=== PATIENT | female | born 1990 ===

== ENCOUNTER 2019-08-23 15:52 | Inpatient (IN) | payer BC ==
[2019-08-26] MEDS ORDERED: OXYTOCIN 10 UNIT/ML 1 ML VIAL IM PRN (06:09)
[2019-08-26] MEDS ORDERED: TERBUTALINE 1 MG/ML VIAL SQ PRN (06:09)
[2019-08-26] MEDS ORDERED: CARBOPROST TROMETHAMINE 250 MCG/ML 1 ML AMP IM PRN (06:09)
[2019-08-26] MEDS ORDERED: LIDOCAINE 0.5% (PF) 5 MG/ML (50 ML SDV) SQ PRN (06:09)
[2019-08-26] MEDS ORDERED: METHYLERGONOVINE 0.2 MG/ML 1 ML AMP IM PRN (06:09)
[2019-08-26 06:16] VITALS: BMI 30.4
[2019-08-26] MEDS: OXYTOCIN 30 UNITS/500 ML NS 30 UNIT in SALINE 1 500ML.BAG IV SCH (06:22)
[2019-08-26] MEDS: LACTATED RINGERS 1,000 ML IV SCH ×3 (06:22→12:03)
[2019-08-26 06:36] LABS: Basophils % (A) 0 %; Eosinophils # (A) 0.1 k/uL (0-0.7); Eosinophils % (A) 1 %; HCT 35.1 % (34.0-46.0); HGB 11.8 gm/dL (11.4-16.0); Lymphocytes # (A) 1.3 k/uL (1.0-4.8); Lymphocytes % (A) 13 %; MCH 31.8 pg (25.0-35.0); MCHC 33.5 g/dL (31.0-37.0); MCV 94.8 fL (80.0-100.0); Mean Platelet Volume 7.2; Monocytes # (A) 0.5 k/uL (0-1.0); Monocytes % (A) 5 %; Neutrophils # (A) 7.7 k/uL (1.3-7.7); Neutrophils % (A) 79 %; Platelet Count 259 k/uL (150-450); WBC 9.8 k/uL (3.8-10.6)
--- NOTE | 2019-08-26 08:39 | P.HPOB ---
History of Present Illness H&P Date: 08/26/19 Chief Complaint: IUP at 40 and 3/sevenths weeks This is a pleasant 29-year-old 1 para 0 at 40-3/7 weeks with an estimated due date of 1020. Patient presents for induction of labor secondary to postdates. Patient has been receiving routine care with myself which has been uncomplicated. Patient notes good movement this morning, she denies contractions, no loss of fluid or vaginal bleeding. On blood work shows a blood type of A+ rubella immune, hepatitis B surface antigen negative, HIV negative, RPR nonreactive, GBS is negative. Review of Systems Constitutional: Denies chills, Denies fatigue Ears, nose, mouth and throat: Denies headache Respiratory: Denies dyspnea Gastrointestinal: Denies constipation, Denies diarrhea, Denies nausea, Denies vomiting Genitourinary: Reports Past Medical History Past Medical History: No Reported History History of Any Multi-Drug Resistant Organisms: None Reported Additional Past Surgical History / Comment(s): [place] tooth extraction Past Anesthesia/Blood Transfusion Reactions: No Reported Reaction Past Psychological History: No Psychological Hx Reported Smoking Status: Never smoker Past Alcohol Use History: None Reported Past Drug Use History: None Reported - Past Family History Mother Family Medical History: No Reported History Medications and Allergies Home Medications Medication Instructions Recorded Confirmed Type Pnv No.95/Ferrous Fum/Folic AC 1 tab PO DAILY 08/26/19 08/26/19 History [ Multivitamin Tablet] Allergies Allergy/AdvReac Type Severity Reaction Status Date / Time No Known Allergies Allergy Verified 08/26/19 06:08 Exam Osteopathic Statement: *. No significant issues noted on an osteopathic structural exam other than those noted in the History and Physical/Consult. Vital Signs Temp Pulse Resp BP 08/26/19 06:09 98.3 F 105 H 16 139/87 Intake and Output 08/25/19 08/26/19 08/26/19 22:59 06:59 14:59 Other: Weight 73.028 kg Targeted physical exam is performed and the state in general this is well- nourished well-developed female in no acute distress, breathing is noted to be nonlabored her heart has regular rate and rhythm her abdomen is gravid and appropriate for gestational age, heart tones are noted to be category 1 and she is tory every 3 minutes, on cervical exam she is 4/50/-2 amniotomy is performed and clear fluid was obtained. Noted trace lower cavity edema. Results Result Diagrams: 08/26/19 06:25 Abnormal Lab Results - Last 24 Hours (Table) 08/26/19 Range/Units 06:25 RBC 3.70 L (3.80-5.40) m/uL Assessment and Plan (1) Post-dates Current Visit: Yes Status: Acute Code(s): O48.0 - POST-TERM SNOMED Code(s): 05775217 Plan: Patient is admitted to labor and delivery for induction of labor, Pitocin augmentation of labor was begun per protocol. Patient is unsure about epidural which is offered for analgesia throughout labor. Stadol is also discussed. Anticipate spontaneous vaginal delivery later today.
[2019-08-26] MEDS ORDERED: BUTORPHANOL 1 MG/ML 1 ML VIAL IV PRN (08:40)
[2019-08-26] MEDS ORDERED: ROPIVACAINE 5MG/ML 20ML VIAL ONE (10:53)
[2019-08-26] MEDS ORDERED: SODIUM CHLORIDE 0.9% 100 ML BAG ONE (10:53)
[2019-08-26] MEDS ORDERED: fentaNYL (PF) 50 MCG/ML 5 ML AMP ONE (10:53)
[2019-08-26] MEDS ORDERED: BENZOCAINE/MENTHOL SPRAY 1 GM/SPRAY AEROSOL TOPICAL PRN (18:54)
[2019-08-26] MEDS ORDERED: ZOLPIDEM 5 MG TAB PO PRN (18:54)
[2019-08-26] MEDS ORDERED: diphenhydrAMINE 50 MG/ML 1 ML VIAL IVP PRN ×2 (18:54)
[2019-08-26] MEDS ORDERED: diphenhydrAMINE 50 MG CAP PO PRN (18:54)
[2019-08-26] MEDS ORDERED: HYDROCORTISONE 2.5% RECTAL CREAM 30 GM TUBE RECTAL PRN (18:54)
[2019-08-26] MEDS ORDERED: WITCH HAZEL 1 EACH MED..PAD TOPICAL PRN (18:54)
[2019-08-26] MEDS ORDERED: HYDROcodone/APAP 5-325MG 1 EACH TAB PO PRN (18:54)
[2019-08-26] MEDS ORDERED: LANOLIN CREAM 5 GM TUBE TOPICAL PRN (18:54)
[2019-08-26] MEDS ORDERED: SIMETHICONE 80 MG CHEWABLE PO PRN (18:54)
[2019-08-26] MEDS ORDERED: diphenhydrAMINE 25 MG CAP PO PRN (18:54)
--- NOTE | 2019-08-26 18:59 | P.PROBDLV ---
Vaginal Delivery Note - . Vaginal Delivery Note: This is a pleasant 29-year-old 1 para 0 at 40-3/7 weeks that presented to labor and delivery for elective induction of labor/postdates. Patient was noted to be 2-3 cm in the office and favorable for induction. Patient was admitted Pitocin induction of labor was begun per hospital protocol, once regular contractions were noted amniotomy was performed clear fluid was noted. Soon afterwards patient became uncomfortable was noted to be 5 cm, she requested epidural placement. Epidural was placed without difficulty by the anesthesia department. Patient progressed through labor eventually becoming complete began pushing and had a normal spontaneous vaginal delivery of a viable male infant at 1834, was noted to have a loose nuchal cord which was delivered through. Infant's weight 5 lbs. 15 oz. with Apgars of 8 and 9 at one and 5 minutes respectively. After a two-minute delayed the umbilical cord was doubly clamped and cut and the placenta was delivered spontaneously intact with a three-vessel cord being noted. On inspection the patient's vault a right labial laceration was noted to travel just inside the hymenal ring. This was repaired in usual fashion with 4-0 chromic. Afterwards hemostasis was appreciated. A small hematoma was noted on the left hymenal ring stable throughout repair no change in size. The uterus was noted to be firm and below the umbilicus at this time. Estimated blood loss 200 mL. patient and tolerated delivery well and are resting comfortably.
[2019-08-26] MEDS ORDERED: OXYTOCIN 20 UNITS/1000 ML NS 1,000 ML IV SCH (19:00)
[2019-08-26] MEDS: IBUPROFEN 600 MG TAB PO PRN (19:30)
[2019-08-26] MEDS: PRENATAL VIT-IRON-FOLIC ACID 1 EACH CAP PO SCH (21:49)
[2019-08-26] MEDS: SENNOSIDES-DOCUSATE SODIUM 1 EACH TAB PO SCH (21:49)
[2019-08-26] MEDS: ACETAMINOPHEN TAB 325 MG TAB PO PRN (22:52)
[2019-08-27] MEDS: LACTATED RINGERS 1,000 ML IV SCH ×2 (00:54→21:15)
[2019-08-27] MEDS: IBUPROFEN 600 MG TAB PO PRN ×4 (00:58→22:32)
[2019-08-27] MEDS: ACETAMINOPHEN TAB 325 MG TAB PO PRN ×2 (03:11→16:33)
[2019-08-27 07:23] LABS: Basophils % (A) 0 %; Eosinophils % (A) 0 %; HCT 30.6 % (34.0-46.0); HGB 10.4 gm/dL (11.4-16.0); Lymphocytes # (A) 1.3 k/uL (1.0-4.8); Lymphocytes % (A) 9 %; MCH 32.5 pg (25.0-35.0); MCHC 33.9 g/dL (31.0-37.0); MCV 95.9 fL (80.0-100.0); Monocytes # (A) 0.6 k/uL (0-1.0); Monocytes % (A) 5 %; Neutrophils # (A) 12.1 k/uL (1.3-7.7); Neutrophils % (A) 85 %; Platelet Count 226 k/uL (150-450); RBC 3.19 m/uL (3.80-5.40); WBC 14.3 k/uL (3.8-10.6)
[2019-08-27] MEDS: SENNOSIDES-DOCUSATE SODIUM 1 EACH TAB PO SCH ×2 (08:16→21:16)
[2019-08-27] MEDS: PRENATAL VIT-IRON-FOLIC ACID 1 EACH CAP PO SCH ×2 (08:18→08:24)
--- NOTE | 2019-08-27 08:54 | P.PNOBGVD ---
Subjective - Subjective Principal diagnosis: POD 1 Interval history: Patient did well overnight. Initial elevated temp of 102.1 has normalized overnight. She was begun on IV antibiotics and has received 2 doses. This morning she states she feels well. she denies fevers or chills, she notes good pain control. She is breast-feeding without difficulty. She is ambulating and voiding without difficulty. States her lochia is moderate. Patient reports: Reports appetite normal, Reports voiding normally, Reports pain well controlled, Reports ambulating normally [place]: doing well, nursing well Objective - Latest Vital Signs Latest vital signs: Vital Signs Temp Pulse Resp BP Pulse Ox 08/27/19 03:00 98.5 F 108 H 16 107/73 08/26/19 23:10 100.0 F H 113 H 16 117/66 98 08/26/19 20:51 100.1 F H 08/26/19 20:50 101 F H 106 H 16 125/78 98 08/26/19 20:21 99.0 F 08/26/19 20:20 100.2 F H 105 H 14 136/82 08/26/19 19:51 99.7 F H 08/26/19 19:50 99.5 F 111 H 14 135/63 08/26/19 19:35 100.5 F H 109 H 16 147/65 08/26/19 19:20 118 H 16 141/64 08/26/19 19:11 98.9 F 08/26/19 19:10 102.1 F H 08/26/19 19:05 101 F H 118 H 16 126/87 08/26/19 18:50 114 H 16 121/84 Intake and Output 08/26/19 08/27/19 08/27/19 22:59 06:59 14:59 Output Total 550 Balance -550 Output: Urine 350 Estimated Blood Loss 200 Other: # Voids 1 - Exam Extremities: Present: normal Abdomen: Present: normal appearance, soft Uterus: Present: normal, firm - Labs Labs: Abnormal Lab Results - Last 24 Hours (Table) 08/27/19 Range/Units 06:46 WBC 14.3 H (3.8-10.6) k/uL RBC 3.19 L (3.80-5.40) m/uL Hgb 10.4 L (11.4-16.0) gm/dL Hct 30.6 L (34.0-46.0) % Neutrophils # 12.1 H (1.3-7.7) k/uL Assessment and Plan (1) Post-dates Current Visit: Yes Status: Acute Code(s): O48.0 - POST-TERM SNOMED Code(s): 97620854 (2) Maternal fever during labor, delivered Current Visit: Yes Status: Acute Code(s): O75.2 - PYREXIA DURING LABOR, NOT ELSEWHERE CLASSIFIED SNOMED Code(s): 683418730 Plan: We'll continue IV antibiotics for a total of 24 hours, and plan on discharge tomorrow if all signs are reassuring. Patient looks well today and I do anticipate discharge home tomorrow.
[2019-08-27] MEDS: OXYTOCIN 30 UNITS/500 ML NS 30 UNIT in SALINE 1 500ML.BAG IV SCH (21:15)
[2019-08-28] MEDS: IBUPROFEN 600 MG TAB PO PRN (08:01)
[2019-08-28 08:51] VITALS: BP 115/70; PULSE 94; RESP 16; TEMP 98.2
[2019-08-28] MEDS: SENNOSIDES-DOCUSATE SODIUM 1 EACH TAB PO SCH (08:53)
--- NOTE | 2019-08-28 10:22 | P.DS ---
Providers Date of admission: 08/26/19 05:52 Expected date of discharge: 08/28/19 Attending physician: Madeleine Davies Primary care physician: Claude Rock - Discharge Diagnosis(es) (1) Maternal fever during labor, delivered Current Visit: Yes Status: Acute (2) Post-dates Current Visit: Yes Status: Acute (3) Normal spontaneous vaginal delivery Current Visit: Yes Status: Acute (4) Nuchal cord Current Visit: Yes Status: Acute Hospital Course: This is a 29-year-old 1 now para 1 woman who on the was admitted at 40- 3/7 weeks gestation for elective induction of labor. She underwent a standard Pitocin induction of labor with artificial rupture of membranes. She received an epidural anesthetic. She went on to deliver a liveborn male with Apgars of 8 at 1 minute and 9 at 5 minutes weighing 5 lbs. 15 oz. with a nuchal cord 1. Small labial laceration noted and repaired. The patient did have fever post delivery and received IV antibiotics. There was no localizing source for the fever. She had a T-max of 101 on 1024 at 8:50 PM. She then remained afebrile for the duration of her hospital course. By the morning of day #2 she was afebrile. She had no localizing source for inspection, specifically no dysuria, no uterine tenderness, no breast redness or signs of mastitis. She was therefore discharged home with routine instructions for care and follow-up. Procedures: Patient Condition at Discharge: Good Plan - Discharge Summary New Discharge Prescriptions: No Action Pnv No.95/Ferrous Fum/Folic AC [ Multivitamin Tablet] 1 tab PO DAILY Discharge Medication List Pnv No.95/Ferrous Fum/Folic AC [ Multivitamin Tablet] 1 tab PO DAILY 08/26/19 [History] Follow up Appointment(s)/Referral(s): Madeleine Davies DO [Doctor of Osteopathic Medicine] - 4 Weeks Activity/Diet/Wound Care/Special Instructions: Follow-up in the office in 6 weeks . Call with any concerning signs or symptoms including heavy vaginal bleeding, severe abdominal pain, fever greater than 101, swelling or redness of the lower extremities, foul vaginal discharge, or signs of depression. Nothing in the vagina for 6 weeks after delivery, specifically no intercourse. Discharge Disposition: HOME SELF-CARE
== END 2019-08-28 11:30 | disposition home or self-care (01) | DRG 806 ==
LOC: 4FBP 08-26 05:52 → MERGE 08-26 05:52
PROVIDERS: ADMIT Obstetrics & Gynecology Obstetrics; ATTEND Obstetrics & Gynecology Obstetrics
PROC: 10E0XZZ Delivery of Products of Conception, External Approach (ICD-10-PCS; principal; 2019-08-26)
PROC: 0HQ9XZZ Repair Perineum Skin, External Approach (ICD-10-PCS; 2019-08-26)
PROC: 10907ZC Drainage of Amniotic Fluid, Therapeutic from Products of Conception, Via Natural or Artificial Opening (ICD-10-PCS; 2019-08-26)
PROC: 3E033VJ Introduction of Other Hormone into Peripheral Vein, Percutaneous Approach (ICD-10-PCS; 2019-08-26)
PROC: 00HU33Z Insertion of Infusion Device into Spinal Canal, Percutaneous Approach (ICD-10-PCS; 2019-08-26)
PROC: 3E0R3BZ Introduction of Anesthetic Agent into Spinal Canal, Percutaneous Approach (ICD-10-PCS; 2019-08-26)
DX: O48.0 Post-term pregnancy (principal); O75.2 Pyrexia during labor, not elsewhere classified; Z37.0 Single live birth; O69.81X0 Labor and delivery complicated by cord around neck, without compression, not applicable or unspecified; O70.0 First degree perineal laceration during delivery; Z3A.40 40 weeks gestation of pregnancy
CPT/HCPCS: 85025; 86850; 86900; 86901; 88307

== ENCOUNTER 2024-11-19 12:12 | Inpatient (IN) | payer BC ==
[2024-11-19] MEDS ORDERED: TRANEXAMIC 1,000 MG/100ML-NACL 1,000 MG in EMPTY BAG 1 BAG IV PRN (12:53)
[2024-11-19] MEDS ORDERED: METHYLERGONOVINE 0.2 MG/ML 1 ML AMP IM PRN (12:53)
[2024-11-19] MEDS ORDERED: OXYTOCIN 10 UNIT/ML 1 ML VIAL IM PRN (12:53)
[2024-11-19] MEDS ORDERED: TERBUTALINE 1 MG/ML VIAL SQ PRN (12:53)
[2024-11-19] MEDS ORDERED: LIDOCAINE 0.5% (PF) 5 MG/ML (50 ML SDV) SQ PRN (12:53)
[2024-11-19] MEDS ORDERED: miSOPROStoL 200 MCG TAB RECTAL PRN (12:53)
[2024-11-19] MEDS ORDERED: CARBOPROST TROMETHAMINE 250 MCG/ML 1 ML AMP IM PRN (12:53)
[2024-11-19] MEDS ORDERED: miSOPROStoL 200 MCG TAB PO PRN (12:53)
[2024-11-19 13:04] LABS: Basophils % (A) 0 %; Eosinophils # (A) 0.1 k/uL (0-0.7); Eosinophils % (A) 1 %; HCT 34.5 % (34.0-46.0); HGB 11.7 gm/dL (11.4-16.0); Lymphocytes # (A) 0.6 k/uL (1.0-4.8); Lymphocytes % (A) 10 %; MCHC 33.8 g/dL (31.0-37.0); MCV 91.8 fL (80.0-100.0); Mean Platelet Volume 8.4; Monocytes # (A) 0.6 k/uL (0-1.0); Monocytes % (A) 9 %; Neutrophils # (A) 5.1 k/uL (1.3-7.7); Neutrophils % (A) 78 %; Platelet Count 247 k/uL (150-450); RBC 3.75 m/uL (3.80-5.40); RDW 13.9 % (11.5-15.5); WBC 6.5 k/uL (3.8-10.6)
[2024-11-19 13:48] VITALS: RESP 16
[2024-11-19] MEDS: NALBUPHINE 10 MG/ML (10 ML MDV) IV PRN (15:48)
[2024-11-19] MEDS: OXYTOCIN 30 UNITS/500 ML NS 30 UNIT in SALINE 1 500ML.BAG IV SCH (15:48)
[2024-11-19] MEDS: LACTATED RINGERS 1,000 ML IV SCH (15:50)
[2024-11-19] MEDS: AMPICILLIN 2,000 MG in SODIUM CHLORIDE 0.9% 100 ML IVPB STA (16:04)
[2024-11-19] MEDS ORDERED: ROPIVACAINE 5 MG/ML 30 ML VIAL ONE (16:59)
[2024-11-19] MEDS ORDERED: SODIUM CHLORIDE 0.9% 250 ML BAG ONE (16:59)
[2024-11-19] MEDS ORDERED: fentaNYL (PF) 50 MCG/ML 5 ML AMP ONE (16:59)
[2024-11-19] MEDS ORDERED: diphenhydrAMINE 50 MG CAP PO PRN (19:55)
[2024-11-19] MEDS ORDERED: diphenhydrAMINE 25 MG CAP PO PRN (19:55)
[2024-11-19] MEDS ORDERED: HYDROCORTISONE 2.5% RECTAL CREAM 30 GM TUBE RECTAL PRN (19:55)
[2024-11-19] MEDS ORDERED: ZOLPIDEM 5 MG TAB PO PRN (19:55)
[2024-11-19] MEDS ORDERED: diphenhydrAMINE 50 MG/ML 1 ML VIAL IVP PRN ×2 (19:55)
[2024-11-19] MEDS ORDERED: LANOLIN CREAM 1 GM TUBE TOPICAL PRN (19:55)
[2024-11-19] MEDS ORDERED: BENZOCAINE/MENTHOL SPRAY 1 GM/SPRAY AEROSOL TOPICAL PRN (19:55)
[2024-11-19] MEDS ORDERED: SIMETHICONE 80 MG CHEWABLE PO PRN (19:55)
[2024-11-19] MEDS ORDERED: AMPICILLIN 1,000 MG in SODIUM CHLORIDE 0.9% 50 ML IVPB SCH (20:00)
[2024-11-19] MEDS ORDERED: OXYTOCIN 30 UNITS/500 ML NS 30 UNIT in SALINE 1 500ML.BAG IV SCH (20:00)
[2024-11-19] MEDS: SENNOSIDES-DOCUSATE SODIUM 1 EACH TAB PO SCH (20:55)
[2024-11-20] MEDS ORDERED: IBUPROFEN 800 MG TAB PO SCH
[2024-11-20] MEDS: IBUPROFEN ORAL SUSP 2,400 MG/120 ML BOTTLE PO SCH (02:55)
[2024-11-20] MEDS ORDERED: ACETAMINOPHEN TAB 500 MG TAB PO SCH (04:00)
[2024-11-20 05:31] LABS: Basophils % (A) 0 %; Eosinophils # (A) 0.1 k/uL (0-0.7); Eosinophils % (A) 1 %; HCT 30.7 % (34.0-46.0); HGB 10.3 gm/dL (11.4-16.0); Lymphocytes # (A) 1.1 k/uL (1.0-4.8); Lymphocytes % (A) 13 %; MCH 30.8 pg (25.0-35.0); MCHC 33.5 g/dL (31.0-37.0); MCV 91.7 fL (80.0-100.0); Mean Platelet Volume 8.6; Monocytes # (A) 0.6 k/uL (0-1.0); Monocytes % (A) 7 %; Neutrophils # (A) 6.6 k/uL (1.3-7.7); Neutrophils % (A) 77 %; Platelet Count 207 k/uL (150-450); RBC 3.35 m/uL (3.80-5.40); WBC 8.6 k/uL (3.8-10.6)
[2024-11-20] MEDS: ACETAMINOPHEN ORAL SUSP (PEDS) 3,840 MG/120 ML BOTTLE PO SCH ×2 (06:12→14:20)
[2024-11-20] MEDS: ACETAMINOPHEN ORAL SUSP 160 MG/5 ML CUP PO SCH (06:18)
[2024-11-20] MEDS: SENNA LEAF EXTRACT SYRUP 528 MG/15 ML CUP PO SCH (08:06)
--- NOTE | 2024-11-20 11:38 | P.HPOB ---
History of Present Illness H&P Date: 11/19/24 Chief Complaint: SROM 34 year old presents at 37 weeks 2 days with SROM since 4am. Her cervix is 2/70/-2 and she is tory very irregularly. heart tones 135 with moderate variability and reactive. Review of Systems All systems: negative Constitutional: Denies chills, Denies fever Eyes: denies blurred vision, denies pain Ears, nose, mouth and throat: Denies headache, Denies sore throat Cardiovascular: Denies chest pain, Denies shortness of breath Respiratory: Denies cough Gastrointestinal: Denies abdominal pain, Denies diarrhea, Denies nausea, Denies vomiting Genitourinary: Denies dysuria, Denies hematuria Musculoskeletal: Denies myalgias Integumentary: Denies pruritus, Denies rash Neurological: Denies numbness, Denies weakness Psychiatric: Denies anxiety, Denies depression Endocrine: Denies fatigue, Denies weight change Past Medical History Past Medical History: No Reported History History of Any Multi-Drug Resistant Organisms: None Reported Additional Past Surgical History / Comment(s): [place] tooth extraction Past Anesthesia/Blood Transfusion Reactions: No Reported Reaction Past Psychological History: No Psychological Hx Reported Smoking Status: Never smoker Past Alcohol Use History: None Reported Past Drug Use History: None Reported - Past Family History Mother Family Medical History: No Reported History Medications and Allergies Home Medications Medication Instructions Recorded Confirmed Type Pnv No.95/Ferrous Fum/Folic AC 1 tab PO DAILY 08/26/19 08/26/19 History [ Multivitamin Tablet] Allergies Allergy/AdvReac Type Severity Reaction Status Date / Time No Known Allergies Allergy Verified 08/30/19 13:51 Exam Osteopathic Statement: *. No significant issues noted on an osteopathic structural exam other than those noted in the History and Physical/Consult. Vital Signs Temp Pulse Resp BP Pulse Ox 11/20/24 05:04 97.7 F 80 16 108/72 96 11/20/24 00:05 98.4 F 99 16 112/72 99 11/19/24 21:15 97.9 F 101 H 16 118/68 11/19/24 21:00 99 16 110/70 99 11/19/24 20:45 83 16 111/66 11/19/24 20:30 102 H 16 108/64 11/19/24 20:15 98 16 110/59 11/19/24 20:00 103 H 16 106/59 11/19/24 19:45 99 16 112/60 100 11/19/24 19:30 106 H 16 111/61 100 11/19/24 19:15 97.5 F L 100 16 118/65 100 11/19/24 12:36 98.2 F 81 16 124/75 98 Intake and Output 11/19/24 11/20/24 11/20/24 22:59 06:59 14:59 Intake Total 173.733 326.267 Output Total 100 Balance 73.733 326.267 Intake: Intake, IV Titration 173.733 326.267 Amount Oxytocin 30 Units/500 ml 173.733 326.267 Ns 30 unit In Saline 1 500ml.bag @ Per Protocol IV .Q0M [facility] Rx#:[id number] Output: Output, Quantitative 100 Blood Loss Other: # Voids 1 1 Heart: Regular rate and rhythm Lungs: Clear to auscultation bilaterally Abdomen: Soft, nontender Extremities: Negative Homans sign l Results Result Diagrams: 11/20/24 05:17 Abnormal Lab Results - Last 24 Hours (Table) 11/19/24 11/20/24 Range/Units 12:55 05:17 RBC 3.75 L 3.35 L (3.80-5.40) m/uL Hgb 10.3 L (11.4-16.0) gm/dL Hct 30.7 L (34.0-46.0) % Lymphocytes # 0.6 L (1.0-4.8) k/uL Assessment and Plan (1) SROM (spontaneous rupture of membranes) Current Visit: Yes Status: Acute Code(s): IHH2809 - SNOMED Code(s): 1 49135897 (2) 37 weeks gestation of Current Visit: Yes Status: Acute Code(s): Z3A.37 - 37 WEEKS GESTATION OF SNOMED Code(s): 43537176 Plan: 1. admit to [facility] 2. pitocin augmentation if necessary 3. anticipate normal vaginal delivery
--- NOTE | 2024-11-20 11:39 | P.PROBDLV ---
Vaginal Delivery Note - . Vaginal Delivery Note: 34 year old presents at 37 weeks 2 days with SROM since 4am. Her cervix is 2/70/-2 and she is tory very irregularly. heart tones 135 with moderate variability and reactive. Patient have a 6-minute deceleration in triage but it recovered with IV fluids oxygen and position changes. At 12 hours of rupture started antibiotics. We were about to start Pitocin as well but she started tory every few minutes and made some good cervical change. She then got an epidural and was comfortable. Cervix was completely dilated at 1821. She pushed, loaded a viable male infant over intact perineum under epidural anesthesia at 1905. Head delivered OA, anterior shoulder delivered gentle downward guidance followed by posterior shoulder rest of body. Nose and mouth bulb suction, clear come to cut, infant placed mother's abdomen. Apgars 9, 9, weight 6 pounds 3.6 ounces. Placenta delivered spontaneously, intact with three-vessel cord at 1909. Vagina, cervix, perineum were inspected. No lacerations noted. Estimated blood loss 100 mL. Mother and baby in stable condition.
--- NOTE | 2024-11-20 11:53 | P.DS ---
Providers Date of admission: 11/19/24 12:23 Expected date of discharge: 11/20/24 Attending physician: Madeleine Davies Primary care physician: Stated None - Discharge Diagnosis(es) (1) SROM (spontaneous rupture of membranes) Current Visit: Yes Status: Resolved (2) 37 weeks gestation of Current Visit: Yes Status: Resolved (3) Normal spontaneous vaginal delivery Current Visit: No Status: Acute Hospital Course: Presented with spontaneous rupture membranes. She then went into labor and underwent a normal vaginal delivery. course has been uneventful. She denies nausea, vomiting, chest pain, shortness of breath or calf pain. Patient will be discharged home day #1 in stable condition to follow- up with Dr Davies in 6 weeks. Plan - Discharge Summary New Discharge Prescriptions: New Ibuprofen Oral Susp [Motrin Oral Susp] 800 mg PO Q8HR 30 Days #3600 ml No Action Pnv No.95/Ferrous Fum/Folic AC [ Multivitamin Tablet] 1 tab PO DAILY Discharge Medication List Pnv No.95/Ferrous Fum/Folic AC [ Multivitamin Tablet] 1 tab PO DAILY 08/26/19 [History] Ibuprofen Oral Susp [Motrin Oral Susp] 800 mg PO Q8HR 30 Days #3600 ml 11/20/24 [Rx] Follow up Appointment(s)/Referral(s): Madeleine Davies DO [Doctor of Osteopathic Medicine] - 6 Weeks Discharge Disposition: HOME SELF-CARE
[2024-11-20 15:55] VITALS: BP 120/68; PULSE 78; TEMP 98.1
== END 2024-11-20 20:05 | disposition home or self-care (01) | DRG 807 ==
LOC: FBPOP 12:12 → 4FBP 12:23
PROVIDERS: ADMIT Obstetrics & Gynecology; ATTEND Obstetrics & Gynecology Obstetrics
PROC: 10E0XZZ Delivery of Products of Conception, External Approach (ICD-10-PCS; principal; 2024-11-19)
DX: O42.02 Full-term premature rupture of membranes, onset of labor within 24 hours of rupture (principal); O76 Abnormality in fetal heart rate and rhythm complicating labor and delivery; Z28.310 Unvaccinated for COVID-19; Z3A.37 37 weeks gestation of pregnancy; Z37.0 Single live birth
CPT/HCPCS: 85025; 86850; 86900; 86901